=== PATIENT | female | born 1975 | race Caucasian/White ===

== ENCOUNTER 2016-09-12 21:37 | Emergency (ER) | payer OTHER | END 2016-09-12 22:18 | disposition home or self-care (01) | LOC: FER 21:37 | DX: T23.101A Burn of first degree of right hand, unspecified site, initial encounter (principal); F43.10 Post-traumatic stress disorder, unspecified; Z79.899 Other long term (current) drug therapy; F17.210 Nicotine dependence, cigarettes, uncomplicated; Z88.0 Allergy status to penicillin; Z88.1 Allergy status to other antibiotic agents; Z88.8 Allergy status to other drugs, medicaments and biological substances; X15.8XXA Contact with other hot household appliances, initial encounter; Y92.009 Unspecified place in unspecified non-institutional (private) residence as the place of occurrence of the external cause | CPT/HCPCS: 99283 ==

== ENCOUNTER → 2020-12-07 | Day surgery (SDC) | payer OTHER ==
[~2020-12-07] VITALS: Ht 170.2 cm; Wt 59.0 kg
[~2020-12-07] MED LIST: 8 HOUR650 MG PO; AIMOVIG AU70 MG/1 ML SC; AZITHROMYCIN250 MG PO; CARAFATE1 GM PO; CLEOCIN300 MG PO; LEVAQUIN500 MG PO; MOTRIN; PERCOCET 5-3251 EACH PO; WELLBUTRIN XL150 MG PO; ZOFRAN4 MG PO
[2020-12-07 07:53] LABS: HCG (URINE) SCREEN NEGATIVE (NEGATIVE)
[2020-12-07 08:18] LABS: HCT 47.4 % (37.0-47.0); HGB 15.4 g/dl (12.5-16.0); MCH 29.3 pg (25.0-31.0); MCHC 32.5 g/dL (32.0-36.0); MCV 90.3 fL (78.0-100.0); MPV 9.7 fL (6.0-9.5); RBC 5.25 M/uL (4.20-5.40); RDW 14.2 % (11.5-14.0)
[2020-12-07 08:42] LABS: ALBUMIN 3.4 g/dL (3.4-5.0); BILIRUBIN - TOTAL 0.3 mg/dL (0.2-1.0); CREATININE 0.9 mg/dL (0.51-0.95); GLOBULIN (CALCULATION) 4.4 g/dL; TOTAL PROTEIN 7.8 g/dL (6.4-8.2)
== END | disposition home or self-care (01) ==
LOC: FAS 07:29
PROVIDERS: Orthopaedic Surgery
DX: L72.0 Epidermal cyst (principal); M25.822 Other specified joint disorders, left elbow; Z20.822 Contact with and (suspected) exposure to COVID-19
CPT/HCPCS: 36415; 80053; 84703; J1100; J2250; J2405; J2704; J3010; J7120

== ENCOUNTER 2021-01-27 22:31 | Emergency (ER) | payer OTHER ==
[~2021-01-27 22:31] MED LIST changes: -LEVAQUIN500 MG PO
[2021-01-28 00:13] LABS: BILIRUBIN NEGATIVE (NEGATIVE); BLOOD 3+ Ery/uL (NEGATIVE); CLARITY CLOUDY (CLEAR); COLOR YELLOW (YELLOW); GLUCOSE (U) NORMAL (NORMAL); LEUKOCYTES 3+ Leu/uL (NEGATIVE); NITRITE NEGATIVE (NEGATIVE); PROTEIN 2+ mg/dL (NEGATIVE); UROBILINOGEN 0.2 mg/dL (0.2-1.0)
[2021-01-28 00:27] LABS: BACTERIA TRACE; URINARY WBC 20-50
[2021-01-28 00:28] LABS: MUCOUS TRACE
[2021-01-28] MEDS ORDERED: LEVAQUIN500 MG PO (02:27)
== END 2021-01-28 02:59 | disposition home or self-care (01) ==
LOC: FER 22:31
PROVIDERS: Internal Medicine
DX: N39.0 Urinary tract infection, site not specified (principal); F17.210 Nicotine dependence, cigarettes, uncomplicated; Z88.0 Allergy status to penicillin; Z88.1 Allergy status to other antibiotic agents; Z88.2 Allergy status to sulfonamides; Z88.8 Allergy status to other drugs, medicaments and biological substances
CPT/HCPCS: 81001; 99283